=== PATIENT | female | born 1945 | race Caucasian/White ===

== ENCOUNTER 2017-02-26 17:23 | Emergency (ER) | payer OTHER ==
[~2017-02-26] VITALS: Ht 157.5 cm; Wt 65.0 kg
[2017-02-26 17:27] VITALS: Ht 157.5 cm; Wt 65.0 kg
[2017-02-26] MEDS ORDERED: KETOROLAC 30 MG INJ IM STA (20:16)
[2017-02-26] MEDS ORDERED: NAPR-685 PO (20:20)
[2017-02-26] MEDS ORDERED: METH500T PO (20:20)
--- NOTE | 2017-02-26 20:24 | ERD ---
ER Documentation Chief Complaint Date/Time DATE: 02/26/17 TIME: 20:21 Chief Complaint HAS CHRONIC BACK PAIN PAINFUL TO AMBULATE HPI This 71-year-old female presents emergency room for back pain that she has had since 1978. Sometimes it worsens and it has been worse for the last couple of days. Is mostly on the left side. She denies any other pain denies any recent trauma. States that she is otherwise healthy. She has no urinary symptoms. ROS All systems reviewed and are negative except as per history of present illness. Medications Home Meds Active Scripts Methocarbamol* (Robaxin*) 500 Mg Tab, 500 MG PO Q8, #20 TAB Prov:CHLOE LUEVANO DO 02/26/17 Naproxen* (Naproxen*) 375 Mg Tablet, 375 MG PO BID Y for PAIN, #10 TAB Prov:CHLOE LUEVANO DO 02/26/17 Reported Medications [None] No Conflict Check 12/20/09 Allergies Allergies: Coded Allergies: No Known Drug Allergy (Verified Allergy, Mild, 12/11/09) Acetaminophen (Verified Adverse Reaction, Mild, PALPITATION, 12/20/09) Chlorpheniramine (Verified Adverse Reaction, Mild, PALPITATION, 12/20/09) Dextromethorphan (Verified Adverse Reaction, Mild, PALPITATION, 12/20/09) Phenylpropanolamine (Verified Adverse Reaction, Mild, PALPITATION, 12/20/09 ) PMhx/Soc History of Surgery: Yes (RIGHT KNEE, ) Hx Neurological Disorder: No Hx Respiratory Disorders: No Hx Cardiac Disorders: No Hx Miscellaneous Medical Probl: No Hx Alcohol Use: No Hx Substance Use: No Hx Tobacco Use: No Smoking Status: Never smoker Physical Exam Vitals Vital Signs Date Time Temp Pulse Resp B/P Pulse Ox O2 Delivery O2 Flow Rate FiO2 02/26/17 17:27 98.1 80 138 138/82 97 Physical Exam Const: [] No distress Head: Atraumatic Eyes: Normal Conjunctiva Skin: No petechiae or rashes Back: No midline or flank tenderness, right-sided paraspinal back muscle spasm of the lumbar area with mild tenderness to palpation. No deformities. Patient able to ambulate around room without difficulty. Ext: No cyanosis, or edema, 5 out of 5 strength bilateral lower extremities, distal pulses intact Neur: Awake and alert and oriented 3, no focal deficit Psych: Normal Mood and Affect Results 24 hrs Current Medications Medications (Trade) Dose Ordered Sig/Kurt Route PRN Reason Start Time Stop Time Status Last Admin Dose Admin Ketorolac Tromethamine (Toradol) 30 mg ONCE STAT IM 02/26/17 20:16 02/26/17 20:18 DC Procedures/MDM Back muscle spasm without trauma and patient with chronic back pain. I see no reason for imaging at this time as the patient is able to move well prior to treatment. She was given 30 mg of IM Toradol in the emergency room which increased the pain substantially. Going to discharge with Robaxin as well as naproxen and return precautions as well as primary care follow-up in the next couple of days. Departure Diagnosis: Primary Impression: Back muscle spasm Additional Impression: Acute exacerbation of chronic low back pain Condition: Stable Patient Instructions: Back Spasm, No Trauma Additional Instructions: Call your primary care doctor TOMORROW for an appointment during the next 1-2 days.See the doctor sooner or return here if your condition worsens before your appointment time. CHLOE LUEVANO DO Feb 26, 2017 20:24
== END 2017-02-26 22:17 | disposition home or self-care (01) ==
LOC: FTE 17:23
DX: M62.830 Muscle spasm of back (principal); M54.5 Low back pain
CPT/HCPCS: 96372; J1885

== ENCOUNTER 2017-06-26 01:48 | Emergency (ER) | payer OTHER ==
[~2017-06-26] VITALS: Ht 142.2 cm; Wt 60.0 kg
[~2017-06-26 01:48] MED LIST: METH500T PO; NAPR-685 PO
[2017-06-26 02:17] VITALS: Ht 142.2 cm; Wt 60.0 kg
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
[2017-06-26] MEDS ORDERED: IBUP-1542 PO ×2 (04:47→14:12)
[2017-06-26] MEDS ORDERED: CYCL-319 PO (04:47)
== END 2017-06-26 04:55 | disposition home or self-care (01) ==
LOC: FTE 01:48
DX: S39.012A Strain of muscle, fascia and tendon of lower back, initial encounter (principal); X58.XXXA Exposure to other specified factors, initial encounter; Y92.9 Unspecified place or not applicable
CPT/HCPCS: 99283

== ENCOUNTER 2017-06-26 12:59 | Emergency (ER) | payer OTHER ==
[~2017-06-26] VITALS: Ht 142.2 cm; Wt 61.4 kg
[~2017-06-26 12:59] MED LIST changes: +CYCL-319 PO; +IBUP-1542 PO
[2017-06-26 13:10] VITALS: Ht 142.2 cm; Wt 61.4 kg
[2017-06-26] MEDS ORDERED: SOD CHLORIDE 0.9% 1,000 ML IV STA (13:22)
[2017-06-26] MEDS ORDERED: KETOROLAC 15 MG INJ IV STA (13:22)
[2017-06-26] MEDS ORDERED: IBUP-1542 PO (14:12)
[2017-06-26 14:29] LABS: BASOPHILS % 0.7 % (0.0-2.0); EOSINOPHILS # 0.1 10^3/ul (0.0-0.5); HEMATOCRIT 34.1 % (37.0-47.0); HEMOGLOBIN 11.7 g/dl (12.0-16.0); LYMPHOCYTES # 0.7 10^3/ul (0.8-2.9); MEAN CORPUSCULAR HEMOGLOBIN 32.1 pg (29.0-33.0); MEAN CORPUSCULAR HGB CONC 34.3 g/dl (32.0-37.0); MEAN CORPUSCULAR VOLUME 93.4 fl (82.0-101.0); MEAN PLATELET VOLUME 9.4 fl (7.4-10.4); MONOCYTE # 0.7 10^3/ul (0.3-0.9); MONOCYTES % 12.3 % (0.0-11.0); NEUTROPHILS % 72.8 % (39.0-77.0); PLATELET COUNT 219 10^3/UL (140-415); RED BLOOD COUNT 3.65 10^6/ul (4.20-5.40); WHITE BLOOD COUNT 5.5 10^3/ul (4.8-10.8)
--- NOTE | 2017-06-26 14:45 | RADRPT ---
PROCEDURE: XR Wrist. CLINICAL INDICATION: Pain TECHNIQUE: AP, lateral and oblique views of the right wrist were performed. COMPARISON: No prior studies are available for comparison. FINDINGS: There is an impacted and mildly ventrally displaced fracture of the right distal radial metaphysis. The carpal bones are aligned. Distal ulna appears intact. Diffuse soft tissue swelling is noted. IMPRESSION: Mildly displaced and impacted fracture of the right distal radial metaphysis. Benign masses are present. .Aj Bermudez MD, MD Date Time Electronically viewed and signed by .Aj Bermudez MD, on 06/26/2017 14:45 .L/
[2017-06-26 14:52] LABS: INR 1.02; PROTIME 13.4 Sec (12.2-14.2)
[2017-06-26 15:01] LABS: ALBUMIN 3.6 g/dl (3.3-4.9); ALBUMIN/GLOBULIN RATIO 1.16; BILIRUBIN,INDIRECT 0.6 mg/dl (0-1.1); BILIRUBIN,TOTAL 0.6 mg/dl (0.2-1.3); CREATININE 0.7 mg/dl (0.44-1.00); POTASSIUM 3.4 mmol/L (3.5-5.1); TOTAL PROTEIN 6.7 g/dl (6.1-8.1)
[2017-06-26 15:27] VITALS: BP 101/69; PULSE 89; RESP 20; TEMP 98.1
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
== END 2017-06-26 15:29 | disposition home or self-care (01) ==
LOC: E/R 12:59
DX: S52.531A Colles' fracture of right radius, initial encounter for closed fracture (principal); R40.2252 Coma scale, best verbal response, oriented, at arrival to emergency department; R40.2142 Coma scale, eyes open, spontaneous, at arrival to emergency department; R40.2362 Coma scale, best motor response, obeys commands, at arrival to emergency department; Y08.89XA Assault by other specified means, initial encounter
CPT/HCPCS: 29125; 36415; 73110; 80053; 83690; 85025; 85610; 96374; 99284; J1885; J7030

== ENCOUNTER 2018-05-28 15:27 | Emergency (ER) | END 2018-05-28 20:14 | disposition home or self-care (01) ==

== ENCOUNTER 2019-05-25 19:39 | Emergency (ER) | payer MEDICARE, MEDICAID ==
[~2019-05-25] VITALS: Ht 152.4 cm; Wt 71.5 kg
[~2019-05-25 19:39] MED LIST changes: -CYCL-319 PO; -METH500T PO; -NAPR-685 PO; +TYL500 PO
[2019-05-25 19:43] VITALS: Ht 152.4 cm; Wt 71.5 kg
[2019-05-26 02:11] VITALS: BP 132/80; PULSE 78; RESP 19
== END 2019-05-26 02:13 | disposition home or self-care (01) ==
LOC: E/R 19:39
DX: M25.561 Pain in right knee (principal); G89.29 Other chronic pain
CPT/HCPCS: 73560